=== PATIENT | female | born 1995 | race Caucasian/White ===

== ENCOUNTER 2016-07-13 03:24 | Emergency (ER) | payer OTHER ==
[~2016-07-13] VITALS: Ht 162.6 cm; Wt 63.5 kg
[~2016-07-13 03:24] MED LIST: ARIP2TAB PO; HYDR-2666 PO; SULF1TAB24 PO
[2016-07-13] MEDS ORDERED: DIPHENHYDRAMINE HCL 25 MG CAPSULE PO ONE (04:00)
--- NOTE | 2016-07-13 04:14 | ED.ADGEN ---
Past Medical History Past Medical History: Anxiety, Bipolar Additional Past Medical Histor: ADHD and seasonal allergies Past Surgical History: No Surgical History Alcohol Use: Occasionally Drug Use: Cocaine, Marijuana Adult General Chief Complaint Chief Complaint: ALLERGIC REACTION HPI HPI Patient is a 21 year old woman, history of anxiety, bipolar disorder, who presents to the emergency department with a complaint of a possible allergic reaction. Initially patient stated that she took her gabapentin at midnight, she started suddenly so, she was concerned this may appear ill allergy. However upon further questioning, patient states her symptoms began between 2:00 and 2: 30 in the morning, and at that time she had recently snorted cocaine, smoked marijuana, and consumed alcohol. Patient states that she has the " flush" after drinking alcohol, which is experiencing currently, however she states that shortly after snorting cocaine and smoking marijuana she noted red numbness in her fingers on both hands, and felt as though her tongue was swollen. She denies any difficulty with breathing or swallowing, any headache, any weakness emesis or tingling, any chest pain or shortness of breath, any nausea or vomiting, any injuries. At this time she states that she is feeling almost back to normal, although her finger still feels fairly cold. She does have a picture with her in the emergency department given her phone, which are consistent with a Raynaud's-type presentation. Review of Systems Review of Systems Constitutional: Denies fever or chills. [] Eyes: Denies change in visual acuity. [] HENT: Denies nasal congestion or sore throat. [] Respiratory: Denies cough or shortness of breath. [] Cardiovascular: Denies chest pain or edema. [] GI: Denies abdominal pain, nausea, vomiting, bloody stools or diarrhea. [] : Denies dysuria. [] Musculoskeletal: Denies back pain or joint pain. [Redness of the fingers.] Integument: Denies rash. [] Neurologic: Denies headache, focal weakness or sensory changes. [] Endocrine: Denies polyuria or polydipsia. [] Lymphatic: Denies swollen glands. [] Psychiatric: Denies depression or anxiety. [] Current Medications Current Medications Current Medications Medications (Trade) Dose Ordered Sig/Mini Start Time Stop Time Status Last Admin Dose Admin Diphenhydramine HCl (Benadryl) 25 mg 1X ONCE 07/13/16 04:00 07/13/16 04:01 DC 07/13/16 04:04 25 MG Allergies Allergies Allergies Coded Allergies Type Severity Reaction Last Updated Verified No Known Drug Allergies 11/14/15 No Physical Exam Physical Exam Constitutional: Well developed, well nourished, no acute distress, non-toxic appearance. [] HENT: Normocephalic, atraumatic, bilateral external ears normal, oropharynx moist, no oral exudates, nose normal. [Normal tongue, no brawny edema, no evidence of swelling or other abnormalities identified.] Eyes: PERRLA, EOMI, conjunctiva normal, no discharge. [] Neck: Normal range of motion, no tenderness, supple, no stridor. [] Cardiovascular:Heart rate regular rhythm, no murmur, S1, S2, rubs or gallops. [] Lungs & Thorax: Bilateral breath sounds clear to auscultation, no wheezing, rhonchi, rales. No chest wall tenderness or crepitus. [] Abdomen: Bowel sounds normal, soft, no tenderness, no masses, no pulsatile masses. [] Skin: Warm, dry, no erythema, no rash. [] Back: No tenderness, no CVA tenderness. [] Extremities: No tenderness, patient's fingers are cool to the touch, however they are normal in color, sensation, and motor function, no swelling, no injuries identified, no cyanosis, no clubbing, ROM intact, no edema. Negative Homans sign. [ noted to have healed lacerations in a linear fashion on the inner aspect of the left wrist, consistent with self-inflicted injury.] Neurologic: Alert and oriented X 3, normal motor function, normal sensory function, no focal deficits noted. [] Psychologic: Affect normal, judgement normal, mood normal. [] Current Patient Data Vital Signs Vital Signs Date Time Temp Pulse Resp B/P Pulse Ox O2 Delivery O2 Flow Rate FiO2 07/13/16 03:43 98.3 92 16 144/88 100 Room Air 98.3 EKG EKG ECG: Rhythm strip: Sinus rhythm, heart rate 86 bpm, no ectopy, as interpreted by me. [] Radiology/Procedures Radiology/Procedures Not indicated. [] Course & Med Decision Making Course & Med Decision Making Pertinent Labs and Imaging studies reviewed. (See chart for details) Patient examination and history with imaging that she brought from home are consistent with Raynaud's, which I believe is induced by cocaine, I do not believe that her symptoms are consistent with an allergy to her Adderall which she last took early this evening, or the gabapentin she took at midnight. Patient also admits to smoking half a joint, and drinking a beer. She is experiencing flushing which is consistent with her usual response when drinking alcohol. At this time, patient has a slight coolness to the digits, but no evidence of ischemia or other concerning findings. I did elected discussion with patient regarding the hazardous effects of substance abuse, including stroke, heart, and other morbidity. She is voices understanding. Regarding the cut gomez noted on the patient's inner left upper extremity, which are well healed, patient states that she may be some gomez about 3 months ago when she was feeling depressed, but she has since restarted her medications , and is feeling much better, denies any suicidal ideation or self injures behaviors. Denies any hallucinations or other abnormalities this time as well. Is a and O 4 in the ED, well-appearing, aside from mild rash as stated. No evidence of ischemia or other concerning findings on examination. Patient received 25 mg of Benadryl in the ED. Poison control was contacted by nurse Manasa, as patient is well-appearing, with no concerning findings at this time, they have no other recreations aside from the Benadryl which started been giving , and hydration with monitoring to be decided discretion of physician. As the patient is well-appearing with no symptoms at this time, she was observed in the ED for additional 30 minutes, received her Benadryl, without change in condition, was discharged home with precautions as discussed and discharge instructions regarding potential harms of cocaine and other illicit substance abuse in stable condition. Dragon Disclaimer Dragon Disclaimer This electronic medical record was generated, in whole or in part, using a voice recognition dictation system. Departure Impression: Primary Impression: Cocaine abuse Additional Impressions: Polysubstance abuse Raynaud's phenomenon Disposition: 01 HOME, SELF-CARE Condition: IMPROVED Problem Qualifiers Additional Impressions: Raynaud's phenomenon Raynaud?s-associated gangrene presence: without gangrene Qualified Code: I73.00 - Raynaud's syndrome without gangrene SUZANNA BOND DO Jul 13, 2016 04:14
[2016-07-13 05:00] VITALS: BP 126/73
== END 2016-07-13 04:59 | disposition home or self-care (01) ==
LOC: ER 03:24
DX: I73.00 Raynaud's syndrome without gangrene (principal); F12.10 Cannabis abuse, uncomplicated; F14.10 Cocaine abuse, uncomplicated; F31.9 Bipolar disorder, unspecified; F41.9 Anxiety disorder, unspecified; F19.10 Other psychoactive substance abuse, uncomplicated; F90.9 Attention-deficit hyperactivity disorder, unspecified type
CPT/HCPCS: 99284; Q0163